=== PATIENT | male | born 1930 | race Caucasian/White ===

== ENCOUNTER 2017-12-26 18:38 | Inpatient (IN) | payer MEDICARE, BC ==
[2017-12-26] MEDS ORDERED: Adacel (T-DAP) 0.5 ML VIAL ONE (19:14)
[2017-12-26] MEDS ORDERED: Acetaminophen 500 MG TAB ONE ×2 (19:14→19:16)
[2017-12-26 19:27] LABS: #Basophils 0.1 thou/uL (0.0-0.2); #Eosinphils 0.2 thou/uL (0.0-0.7); #Lymphocytes 0.7 thou/uL (1.20-3.40); #Monocytes 0.6 thou/uL (0.11-0.59); #Neutrophils 6.5 thou/uL (1.40-6.50); %Basophils 1.4 % (0.0-1.0); %Eosinophils 2.8 % (0.0-10.0); %Lymphocytes 8.2 % (21.0-51.0); %Monocytes 7.3 % (0.0-10.0); %Neutrophils 80.4 % (42.0-75.0); Hemoglobin 12.4 g/dL (14.0-18.0); Mean Corpuscular HGB CONC 35.1 g/dL (32.0-36.0); Mean Corpuscular Hemoglobin 30.3 pg (27.0-31.0); Mean Corpuscular Volume 86.3 fl (80.0-94.0); Mean Platelet Volume 6.8 fL (7.4-10.4); Platelet Count 170 thou/uL (130-400); RBC Distribution Width 11.1 % (11.5-14.5); White Blood Cell (WBC) Count 8.1 thou/uL (4.8-10.8)
[2017-12-26 19:32] LABS: INR-International Normal Ratio 1.1; PTT 30.3 SEC (22.9-36.1); Prothrombin Time 14.1 SEC (12.0-14.7)
[2017-12-26 19:42] LABS: ALT (SGPT) 17 U/L (8-55); AST (SGOT) 22 U/L (5-34); Albumin 3.9 g/dL (3.4-4.8); Alkaline Phosphatase 38 U/L (40-150); Anion Gap 12 mmol/L (10-20); BUN (Urea Nitrogen) 21 mg/dL (8.4-25.7); Bilirubin, Total 0.4 mg/dL (0.2-1.2); CK (CPK) 108 U/L (30-200); Calc. Creatinine Clearance 0 mL/min (70-130); Calcium 9.2 mg/dL (7.8-10.44); Carbon Dioxide 25 mmol/L (23-31); Chloride 99 mmol/L (98-107); Estimated GFR-MDRD 78; Globulin 2.2 g/dL (2.4-3.5); Glucose 167 mg/dL (83-110); Potassium 3.8 mmol/L (3.5-5.1); Protein, Total 6.1 g/dL (5.8-8.1); Sodium 132 mmol/L (136-145)
[2017-12-26 19:43] LABS: Troponin I Less than 0.010 ng/mL (< 0.028)
--- NOTE | 2017-12-26 20:17 | CT ---
CT BRAIN NONCONTRAST: HISTORY: An 87-year-old male with syncope, resulting in fall and traumatic headache. FINDINGS: There is no midline shift or any other mass effect. There is no evidence of acute intracranial hemor rhage, large cortical infarct, obstructive hydrocephalus, or extraaxial fluid collection. The calvar ium is intact. There is diffuse parenchymal volume loss. There are low attenuation areas in the whi te matter. These are nonspecific, but in a patient of this age, they are probably chronic ischemic w nydia matter changes due to microvascular atherosclerosis. IMPRESSION: 1) No acute intracranial findings. 2) Involutional changes and chronic ischemic white matter changes. jn [] POS: [facility]
--- NOTE | 2017-12-26 20:30 | CT ---
CT MAXILLOFACIAL NONCONTRAST: DATE: 12/26/2017 TIME: 7:36 p.m. HISTORY: An 87-year-old male, status post acute traumatic injury to the face from a fall. FINDINGS: Mildly displaced nasal bone fractures, with angulation, and overlying mild soft tissue swelling, ther efore probably acute. All the paranasal sinuses and the bilateral tympanomastoid cavities are grossl y clear. No other fracture is identified. IMPRESSION: Acute, traumatic, minimally displaced nasal bone fractures. POS: [facility]
--- NOTE | 2017-12-26 20:31 | CT ---
CT CERVICAL SPINE NONCONTRAST: HISTORY: An 87-year-old male status post acute traumatic injury to the cervical spine from fall. FINDINGS: There are no jumped or perched facets. There is no evidence of acute fracture. The vertebral body h eights are maintained. There is no prevertebral soft tissue swelling. IMPRESSION: No evidence of acute fracture or acute traumatic subluxation. benny [] POS: [facility]
--- NOTE | 2017-12-26 21:16 | RAD ---
RADIOGRAPH CHEST 1 VIEW: HISTORY: An 87-year-old male status post syncope. FINDINGS: This study is overexposed, making it suboptimal. There is hyperinflation of the lungs, consistent wi th COPD. There is no evidence of air space density, pneumothorax, or pulmonary edema. The lateral c ostophrenic angles are sharp. There is no cardiomegaly. There is a multilead left subclavian AICD. IMPRESSION: 1) No acute pulmonary findings. 2) Emphysema. 3) Automatic implantable cardioverter/defibrillator. benny [] POS: [facility]
--- NOTE | 2017-12-26 21:21 | RAD ---
RADIOGRAPH RIGHT KNEE FOUR VIEWS: 12/26/2017 HISTORY: An 87-year-old male status post acute right knee injury from fall. FINDINGS: No acute fracture is identified. No dislocation. Small suprapatellar joint effusion. Mild edema in the Hoffa's fat pad. Moderate to severe joint space narrowing and adjacent sclerosis of the articul ar surfaces at the medial compartment. Chondrocalcinosis of the medial and lateral compartments. IMPRESSION: 1. Moderate osteoarthrosis of the medial compartment. 2. 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 3. Small joint effusion. 4. No fracture identified. POS: [facility]
[2017-12-26] MEDS ORDERED: HYDROcodone/Acetaminophen 5/325 mg Tablet PO PRN ×2 (21:22)
[2017-12-26] MEDS ORDERED: Ondansetron ODT 4 MG TAB SL PRN (21:22)
[2017-12-26] MEDS ORDERED: Acetaminophen 325 MG TAB PO PRN (21:22)
[2017-12-26] MEDS ORDERED: Ondansetron HCl/PF 4 MG/2 ML Vial IVP PRN (21:22)
[2017-12-26 22:01] VITALS: BMI 19.3
[2017-12-26] MEDS ORDERED: Carvedilol 3.125 MG TAB PO SCH (22:30)
[2017-12-27 01:48] LABS: Troponin I 0.016 ng/mL (< 0.028)
[2017-12-27 08:39] LABS: Bilirubin Negative (Negative); Blood, Urine Small (Negative); Clarity CLEAR (Clear); Glucose, Urine (Dipstick) Negative (Negative); Leukocyte Negative (Negative); Nitrite Negative (Negative); Protein, Urine (Dipstick) Negative (Neg-Trace); Specific Gravity, Urine 1.009 (1.002-1.036); Urobilinogen 0.2 mg/dL (0.2-1.0); pH, Urine 7.5 (5.0-9.0)
[2017-12-27 08:42] LABS: Hemoglobin 14.3 g/dL (14.0-18.0)
--- NOTE | 2017-12-27 08:45 | HP ---
CHIEF COMPLAINT: Fall. HISTORY OF PRESENT ILLNESS: This is an 87-year-old gentleman with a history of hypertension, sick sinus syndrome, status post pacemaker placement, dilated ischemic cardiomyopathy, history of aortic insufficiency, history of memory loss , who presents to the emergency department last night after a fall. The patient states that he has been in his usual state of health and has not been ill. He recently returned from a trip from [place] and yesterday was doing his usual walk, had already walks 1-2 miles and began to feel dizzy. He went to go sit down when he apparently fell. He hit his face on the ground as well as his right knee. He states that he was aware during the whole fall, he had no loss of consciousness. He reports there was someone who came by to help him up and gave him some water to drink. The dizziness resolved. He had no postictal state. No increased confusion. He denied chest pain, shortness of breath or palpitations. He presented to the emergency department last night had a normal workup in the ED with a normal CT spine, normal chest x-ray, normal brain CT, normal x-ray of knee. He did suffer a nasal fracture, minimally displaced. He states that he slept well last night and today is feeling back to his baseline with no further episodes of dizziness. He is followed by Dr. Simone Tello for Cardiology and he states that he last saw him about 2 months ago in his office and had a normal workup. No change in his medications. PAST MEDICAL HISTORY: Essential hypertension, sick sinus syndrome, status post pacemaker defibrillator placement in 2014, history of dilated cardiomyopathy. He is uncertain of his last echocardiogram, aortic insufficiency, history of pulmonary fibrosis, CHF, past episode of syncopal episode. MEDICATIONS: Zestril 2.5 mg daily, spironolactone 25 mg daily, carvedilol 3.125 mg b.i.d., Claritin once daily p.r.n., Centrum multivitamin, senna, aspirin 81 mg daily. ALLERGIES: None known. PAST SURGICAL HISTORY: A left fibular fracture in 2006, tonsillectomy in 2011, a defibrillator pacemaker placement in 2014, appendectomy, left leg vein repair , right eye cataract removal, a broken wrist in 2014. Basal cell carcinoma in 2014. Left hydrocele repair at 41, inguinal hernia repair in 2012. SOCIAL HISTORY: He is a retired protective services social worker. He is , has a daughter who lives at home and assist him. He is a nonsmoker, no alcohol. Regular caffeine usage. FAMILY HISTORY: Father with hypertension, heart disease, alcoholism. Mother with schizophrenia, CVA, daughter with depression. IMMUNIZATIONS: Up to date. A tetanus shot given in the ED. REVIEW OF SYSTEMS: As per the history of present illness. GENERAL: He denies any recent fevers, chills or recent illness. HEENT: Positive facial pain. Positive nasal fracture. No blurred vision, double vision. CARDIAC: Denies chest pain, shortness of breath or palpitations. PULMONARY: Denies cough or hemoptysis. GASTROINTESTINAL: Denies nausea, vomiting, abdominal pain, melena or hematochezia. GENITOURINARY: Denies dysuria or hematuria. NEUROLOGIC: Positive syncope. No seizures, no postictal state. No headache. MUSCULOSKELETAL: Right knee pain after a fall. PSYCHIATRIC: No recent episodes of depression or anxiety. PHYSICAL EXAMINATION: VITAL SIGNS: Temperature 98.2, pulse of 65, respirations 12, blood pressure last night 141/64, this morning 111/57, pulse ox is 94% on room air. GENERAL: He is awake and alert, in no acute distress. Speech is clear and fluent. HEENT: Face with ecchymosis. Positive redness, positive blood over nasal areas with abrasions. NECK: Supple, no JVD, adenopathy or bruits. HEART: Regular rate and rhythm without murmurs. LUNGS: Clear bilaterally. ABDOMEN: Soft. No hepatosplenomegaly. EXTREMITIES: Some redness over the right knee with tenderness to palpation, but full range of motion. NEUROLOGIC: Cranial nerves II-XII are grossly intact. Strength is 5/5 bilaterally. DTRs are normal bilaterally. He is able to stand without difficulty. He has negative Romberg sign. LABORATORY DATA: White blood cell count 8.1, hemoglobin and hematocrit 12.4 and 35.4, platelets of 170, normal differential. PT, PTT are normal. Sodium 132, potassium 3.8, chloride 99, CO2 of 25, BUN and creatinine at 21 and 0.92 with a GFR of 78. Serum glucose of 167. AST and ALT are normal. Cardiac enzymes are negative x3. Again, cervical spine CT was normal. Chest x-ray showed no active disease. Brain CT showed chronic ischemic changes, no acute abnormalities. Facial CT with a nondisplaced nasal fracture. Knee x-ray was normal. ASSESSMENT AND PLAN: This is an 87-year-old gentleman with a history of sick sinus syndrome and cardiomyopathy, now status post syncopal episode and nasal fracture. 1. Agree with ENT evaluation. Likely will not need surgical repair. 2. Syncope. Await echocardiogram and carotid Doppler. Continue telemetry monitoring to rule out arrhythmia. We will also interrogate his pacemaker. 3. History of cardiomyopathy. We will continue carvedilol and lisinopril. We will stop spironolactone at this time due to syncopal episode, possibly related to dehydration. 4. We will check UA C&S to rule out any other etiologies of the syncope. DISPOSITION: Hopefully home later this afternoon after workup is completed with close followup. LILIAN
[2017-12-27 08:47] LABS: Bacteria/HPF None Seen HPF (None Seen); Hyaline Casts/LPF 0-3 HYALINE CAST LPF (0-3 Hyaline); Squamous Epithelial None Seen HPF (0-3); WBC/HPF None Seen HPF (0-3)
[2017-12-27] MEDS ORDERED: SIMETHICONE 125 MG PO SCH (09:00)
[2017-12-27] MEDS ORDERED: Aspirin 325 MG TAB PO SCH (09:00)
[2017-12-27] MEDS ORDERED: Non-Formulary Item 1 EACH (Calcium Carb/Vitamin D3/Vit K1 [Calcium + D Soft Chewable Tabl PO SCH (09:00)
[2017-12-27] MEDS ORDERED: VITAMIN B COMPLEX PO SCH (09:00)
[2017-12-27] MEDS ORDERED: Non-Formulary Item 1 EACH (Loratadine [Claritin] 10 MG) PO SCH (09:00)
[2017-12-27] MEDS ORDERED: FOLIC ACID PO SCH (09:00)
[2017-12-27 09:06] LABS: Anion Gap 11 mmol/L (10-20); BUN (Urea Nitrogen) 13 mg/dL (8.4-25.7); Calc. Creatinine Clearance 64 mL/min (70-130); Calcium 9.5 mg/dL (7.8-10.44); Carbon Dioxide 24 mmol/L (23-31); Chloride 104 mmol/L (98-107); Estimated GFR-MDRD Greater than 90; Glucose 95 mg/dL (83-110); Potassium 3.9 mmol/L (3.5-5.1); Sodium 135 mmol/L (136-145)
[2017-12-27] MEDS: Lisinopril 2.5 MG TAB PO SCH (09:21)
[2017-12-27] MEDS: Simethicone Chewable 80 MG TAB PO SCH (09:22)
[2017-12-27] MEDS: Calcium Carbonate + Vit D 1 TAB PO SCH (09:22)
[2017-12-27] MEDS: Carvedilol 3.125 MG TAB PO SCH ×2 (09:23→21:22)
[2017-12-27] MEDS: Loratadine 10 MG TAB PO SCH (09:23)
[2017-12-27] MEDS: Stress 600 With Zinc 1 TAB PO SCH (09:23)
[2017-12-27] MEDS: Acetaminophen 325 MG TAB PO PRN (13:06)
--- NOTE | 2017-12-27 13:17 | ULT ---
BILATERAL CAROTID DUPLEX ULTRASOUND: HISTORY: Syncope. TECHNIQUE: Tello-scale, color-flow, and spectral Doppler imaging of the extracranial carotid artery systems is pe rformed bilaterally. FINDINGS: There is plaque formation on either side. The peak systolic velocity in the right ICA measures 74 cm per second with an end-diastolic velocity of 13 cm per second and a systolic ratio of 0.85. The peak systolic velocity in the left ICA measures 61 cm per second with an end-diastolic velocity o f 15 cm per second and a systolic ratio of 0.84. Flow in both vertebral arteries remains antegrade. IMPRESSION: No evidence of hemodynamically significant stenosis. POS: [facility]
[2017-12-27] MEDS: Senokot S 8.6-50 MG TAB PO SCH (21:22)
--- NOTE | 2017-12-27 22:58 | CON ---
DATE OF CONSULT: 12/27/17 HISTORY OF PRESENT ILLNESS: The patient is an 87-year-old gentleman who presents for evaluation after losing consciousness. The patient has a history of a nonischemic cardiomyopathy. He states several years ago, he was diagnosed with a cardiomyopathy, and had placement of automatic implantable cardiac defibrillator. He also underwent a cardiac catheterization and he was found to have apparently no significant coronary artery disease. This was done in [place] approximately three years ago. The patient has subsequently been followed by Dr. Tello. He has been on medical therapy. He was in usual state of health when at the mall, he had walked for several miles when he suddenly lost consciousness. He fell and hit his face. The patient denied having a loss of control of bladder or bowels. The patient denied having chest pain. PAST MEDICAL HISTORY: 1. Cardiomyopathy. 2. Hypertension. 3. Sick sinus syndrome. PAST SURGICAL HISTORY: Appendectomy, eye surgery, hydrocele repair, inguinal hernia repair and surgery on his fibula. SOCIAL HISTORY: Nonsmoker. FAMILY HISTORY: Positive family history of coronary artery disease. ALLERGIES: No known drug allergies. MEDICATIONS ON ADMISSION: Zestril 2.5 daily, spironolactone 25 daily, Coreg 3.125 b.i.d. REVIEW OF SYSTEMS: Ten-point system otherwise unremarkable. PHYSICAL EXAMINATION: GENERAL: This is a well-developed gentleman in no acute distress. VITAL SIGNS: Blood pressure was 132/63 supine, sitting was 141/64 and standing was 137/64. NECK: Showed no jugular distention. LUNGS: Clear to auscultation. HEART: Regular rate and rhythm, normal S1, S2, no murmurs. ABDOMEN: Nondistended. EXTREMITIES: Showed no edema. SKIN: Warm and dry. NEUROLOGIC: Nonfocal. VASCULAR: Radial pulses are 2+. LABORATORY DATA: Sodium 135, potassium 3.9, chloride 104, bicarbonate 24, BUN 13, creatinine is 0.74. Troponin was 0.016. His EKG revealed him to have electronic ventricular pacemaker. Interrogation of the AICD showed nonsustained ventricular tachycardia. IMPRESSION: 1. Syncope. 2. Ventricular tachycardia. 3. History of nonischemic cardiomyopathy. 4. History of AICD placement. 5. Hypertension. This gentleman presented with a syncopal episode and sustained a facial injury. He had his AICD interrogated. There was nonsustained ventricular tachycardia which does not appear to correlate with the timing of his fall. We will ask EP to evaluate. The patient is not orthostatic. We will recheck the patient's echocardiogram. We will follow this patient with you through his hospitalization. Further recommendation to follow. MTDD
[2017-12-28] MEDS: Stress 600 With Zinc 1 TAB PO SCH (07:53)
[2017-12-28] MEDS: Loratadine 10 MG TAB PO SCH (07:53)
[2017-12-28] MEDS: Lisinopril 2.5 MG TAB PO SCH (07:53)
[2017-12-28] MEDS: Carvedilol 3.125 MG TAB PO SCH ×2 (07:53→20:14)
[2017-12-28] MEDS: Calcium Carbonate + Vit D 1 TAB PO SCH (07:53)
[2017-12-28] MEDS: Simethicone Chewable 80 MG TAB PO SCH (07:54)
--- NOTE | 2017-12-28 08:27 | PRG ---
DATE OF SERVICE: 12/28/2017 SUBJECTIVE: The patient is feeling better. Denies chest pain, denies shortness of breath, denies pa lpitations. He admits to some lightheadedness at times, but no falls, no near syncope. He wants to go home. Appetite is good. He is tolerating walking in the hallway with his daughter. PHYSICAL EXAMINATION: VITAL SIGNS: Temperature 97.6, pulse of 65-72, respirations 12, blood pressure 116/56, pulse ox is 9 6% on room air. GENERAL: He is awake and alert, in no acute distress. Speech is clear. HEENT: Face with contusions and abrasions. Nose is visibly displaced. NECK: Supple. HEART: Regular rate and rhythm. LUNGS: Clear bilaterally. EXTREMITIES: With no edema. LABORATORY DATA: H and H 14.3 and 40.9. Sodium 135, potassium 3.9, chloride 104, CO2 of 24, BUN and creatinine 13 and 0.74 with a GFR greater than 90, glucose of 95, pacemaker interrogation did reveal at least 2 episodes of ventricular tachycardia that did not correlate with his symptoms and his fall . ASSESSMENT AND PLAN: This is an 87-year-old gentleman with known sick sinus syndrome, status post pa cemaker defibrillator placement, history of dilated cardiomyopathy, now with status post syncopal epi sode. 1. Appreciate cardiology evaluation. Awaiting EP evaluation for episodes of ventricular tachycardia . 2. Syncope. Awaiting echocardiogram report. Continue telemetry monitoring. 3. Nasal fracture. Await ENT opinion. 4. Cardiomyopathy, hypertension. We will continue carvedilol and lisinopril. I will continue to ke ep him off his spironolactone.
--- NOTE | 2017-12-28 11:03 | CON ---
DATE OF CONSULTATION: 12/28/2017 ELECTROPHYSIOLOGY CONSULTATION REPORT REFERRING PHYSICIAN: Dr. Bogdan Valencia I am seeing Mr. Blanton at our [facility] telemetry floor as an electrophysiology solutions sales consultant. His problems are: 1. Acute syncopal spell with significant facial trauma. A. ICD reveals no correlation of sustained ventricular tachycardia, but 150 beats per minute. 2. Nonsustained ventricular tachycardia on telemetry below the 150 beats per minute color zone, not prolonged enough to be treated ____ 19 beats. A. Ventricular fibrillation episodes nonsustained about 12 seconds on 12/10/2017 on ICD. 3. Since his biventricular ICD implantation in 06/[address] [employer] Quadra [employer]ura device wi th adequate battery voltage and lead per meters LV threshold 2.25 at 0.8 milliseconds. 4. Chronic systolic congestive heart failure with nonischemic cardiomyopathy. 5. History of sick sinus syndrome. 6. History of hypertension. ALLERGIES: None noted. MEDICATIONS AT HOME: Zestril, spironolactone and Coreg; Zestril 2.5 mg daily, spironolactone 25 mg, Coreg 3.125 mg twice a day. SUBJECTIVE: Mr. Blanton is here after a varun syncope while he was doing his walking exercise in the mall. He completely passed out suddenly after a slight prodrome of dizziness. He denies chest pains or palpitations prior to that. He does not recall any other signs of infection or abnormal distress although he has been busy last week traveling to [place] and walking around. He has been consum ing ample amount of fluids. He has no other episodes of palpitations. Does not pass out otherwise. He has no fever, chills, or cough. No stroke-like symptoms, no neurological deficits. Denies PND, orthopnea, lower extremity edema, fluid overload. REVIEW OF SYSTEMS: The rest of the 12 point system otherwise unremarkable. PAST MEDICAL HISTORY: As above. PAST SURGICAL HISTORY: Significant for fibular surgery, appendectomy, eye surgery, hydrocele repair, inguinal hernia repair. SOCIAL HISTORY: The patient denies smoking, ETOH or drug use. FAMILY HISTORY: Significant for coronary artery disease. OBJECTIVE: VITAL SIGNS: Blood pressure is116/56, pulse 65, respirations 18, temperature 97.8 degrees Fahrenheit . The orthostatic blood pressures were checked yesterday, standing blood pressure is 137/64, supine blood pressure 133/63. GENERAL: He is an alert and oriented man in no apparent distress. There is nasal bone deviation as well as obvious nasal area facial trauma is noted with bruises. NECK: Supple without jugular venous distention. CHEST: Coarse without crackles. CARDIAC: Left precordial ICD insertion site is well healed. ABDOMEN: Benign. Bowel sounds positive. EXTREMITIES: Lower extremities without edema, clubbing or cyanosis. Pulses are adequate. NEUROLOGIC: The patient is nonfocal. MUSCULOSKELETAL: No joint swelling or deformities. SKIN: Without rash. DATABASE: The EKG is reviewed revealing sinus rhythm with ventricular pacing with narrow down QRS. Interrogation of his ICD reveals a [employer] Quad[employer]ura biventricular ICD with implant date 07/07/2015. All lead parameters are adequate. The LV threshold is slightly high at 2.25 volts at 0 .8 milliseconds, his DDDR 61 20 beats per minute, VT zone is 150 beats per minute per monitor, VT 2 zone and VS1 is 181 beats per minute with therapies and 214 beats per minute for therapies as well. No sustained ventricular tachycardia episodes are noted. Atrial fibrillation burden is 0 and no mode switches are seen. a nonsustained VF zone arrhythmia was documented on 12/10/2017 at 194 beats per minute. Total duration of 12 seconds. LABORATORY DATA: White count is 8.1, hemoglobin 12.4, platelet count is 170. INR 1.1. Sodium 135, potassium 3.9, BUN is 13, creatinine 0.74. Troponins are negative x3. The chest x-ray shows no acute pulmonary findings, some signs of emphysema. The Brain CT shows no acute intracranial findings, minor involuntary changes. Carotid Doppler from 0 12/27/2017 shows no evidence of hemodynamic significant stenosis. ASSESSMENT AND PLAN: As above. There is a pleasant 87-year-old man with history of congestive heart failure and nonischemic cardiomyopathy who has an adequate functioning biventricular ICD in place. He presented with acute syncopal spell with minimal prodrome. His ICD revealed no correlating sustai rogerio ventricular arrhythmias at least above 150 beats per minute, his monitor zone is programmed to. On the other hand, he does have a telemetry strip in our facility of ventricular tachycardia, rhythm about 19 beats which seems to be cutting below the 150 beats per minute range. So far we have no goo d explanation for his syncopal spell. He does not seem to be sick and dehydrated and his blood press ure is stable. One of the possibilities that he has a below detection limit ventricular tachycardia. I think it wou ld be reasonable to consider evaluating his inducibility for slow ventricular tachycardia and attempt to program his ICD accordingly. I will set him up for a noninvasive program stimulation tomorrow mo rning. We will keep him n.p.o. I explained the procedure to him. Risks and benefits detailed. We will proceed.
[2017-12-28] MEDS: Senokot S 8.6-50 MG TAB PO SCH (20:14)
[2017-12-28] MEDS: Acetaminophen 325 MG TAB PO PRN (23:08)
[2017-12-29] MEDS ORDERED: Propofol 500 MG/50 ML VIAL ONE (08:14)
[2017-12-29] MEDS ORDERED: Ondansetron HCl/PF 4 MG/2 ML Vial IVP PRN (08:55)
[2017-12-29] MEDS ORDERED: Promethazine HCl 25 MG/ML VIAL IM PRN (08:55)
[2017-12-29] MEDS ORDERED: Promethazine HCl 25 MG/ML VIAL SLOW IVP PRN (08:55)
[2017-12-29] MEDS: Lisinopril 2.5 MG TAB PO SCH (12:19)
[2017-12-29] MEDS ORDERED: Calcium Carbonate + Vit D 1 TAB PO SCH (12:30)
[2017-12-29] MEDS ORDERED: Simethicone Chewable 80 MG TAB PO SCH (12:30)
[2017-12-29] MEDS ORDERED: Stress 600 With Zinc 1 TAB PO SCH (12:30)
[2017-12-29] MEDS ORDERED: Carvedilol 3.125 MG TAB PO SCH (12:30)
[2017-12-29] MEDS ORDERED: Loratadine 10 MG TAB PO SCH (12:30)
[2017-12-29] MEDS: Simethicone Chewable 80 MG TAB PO SCH (12:47)
[2017-12-29] MEDS: Loratadine 10 MG TAB PO SCH (12:47)
[2017-12-29] MEDS: Stress 600 With Zinc 1 TAB PO SCH (12:47)
[2017-12-29] MEDS: Carvedilol 3.125 MG TAB PO SCH ×2 (12:47→20:27)
[2017-12-29] MEDS: Calcium Carbonate + Vit D 1 TAB PO SCH (12:47)
[2017-12-29] MEDS ORDERED: PROPOFOL 200 MG/20 ML VIAL ONE (14:17)
[2017-12-29] MEDS: Senokot S 8.6-50 MG TAB PO SCH (15:42)
[2017-12-30 08:16] VITALS: BP 127/60; TEMP 98.6
[2017-12-30] MEDS: Calcium Carbonate + Vit D 1 TAB PO SCH (08:17)
[2017-12-30] MEDS: Loratadine 10 MG TAB PO SCH (08:17)
[2017-12-30] MEDS: Carvedilol 3.125 MG TAB PO SCH (08:17)
[2017-12-30] MEDS: Simethicone Chewable 80 MG TAB PO SCH (08:18)
--- NOTE | 2017-12-30 08:25 | DIS ---
DATE OF ADMISSION: 12/27/2017 DATE OF DISCHARGE: 12/30/2017 ADMISSION DIAGNOSIS: Syncopal episode, fall, nasal fracture. DISCHARGE DIAGNOSES: Sick sinus syndrome, nasal fracture, syncope, cardiomyopathy. CONSULTATIONS: Bogdan Valencia M.D. for Cardiology, Dr. Mitchell for Electrophysiology, Dr. Ayala for EN T. HOSPITAL COURSE: This is an 87-year-old gentleman with a history of sick sinus syndrome, status post placement of a pacemaker defibrillator. He had a syncopal episode while walking at the mall. He badillo ffered a nasal fracture. He was admitted to telemetry due to the syncopal episode when his pacemaker was interrogated. It noted several episodes of ventricular tachycardia. The patient was mostly asy mptomatic during those episodes. Dr. Valencia saw the patient in evaluation and recommended electrop hysiology evaluation. Dr. Mitchell saw the patient due to the syncopal episode with facial trauma, episo paulina of sustained ventricular tachycardia up to 150 beats per minute, as well as a nonsustained episod e of ventricular fibrillation on 12/10/2017. He recommended electrophysiology evaluation and to prog lulú. his ICD. He underwent a cardiac catheterization and procedure and tolerated it well. His devic e was reprogrammed without any complications. The patient was ambulating without difficulty and stab le for discharge on the day of discharge. DISCHARGE PHYSICAL EXAMINATION: VITAL SIGNS: Temperature 97.6, pulse of 75, respirations 16, blood pressure 121/64, pulse ox is 97% on room air. GENERAL: He is awake and alert, in no acute distress. HEENT: Face with ecchymotic areas. No further bleeding from his nose. Tenderness over his nasal br idge. HEART: Regular rate and rhythm. LUNGS: Clear. EXTREMITIES: With no edema. LABORATORY DATA: Reviewed. DISCHARGE MEDICATIONS: Tylenol, aspirin 81 mg daily, calcium, carvedilol 3.125 mg b.i.d., multivitam in, lisinopril was discontinued. FOLLOWUP INSTRUCTIONS: The patient to follow up with Dr. Mitchell as an outpatient and Cardiology in 1-2 weeks, in my office in 1-2 weeks.
--- NOTE | 2017-12-30 09:03 | OP ---
DATE OF PROCEDURE: 12/29/2017 NONINVASIVE PROGRAM STIMULATION REPORT REFERRING PHYSICIAN: Dr. Valencia. I am seeing Mr. Blanton for an episode of syncopal spell. His ICD device interrogation revealed no correlating ventricular arrhythmia down to the level of 150. There is suspicion of sub-detection zone ventricular tachycardia episodes, He is here for a noninvasive program stimulation and reprogramming of his ICD. DESCRIPTION OF PROCEDURE: The patient received light sedation by Anesthesia specialist, propofol. After adequate level of sedation achieved, the patient was prepped in the EP Lab. The external defibrillator pads were attached and verified. With a [employer] ict programmer for interrogation of device was performed revealing adequate device function longevity to about 3.3 years, mild LV 0.8 milliseconds. Following that, a program stimulation was performed through the ventricular lead initially with 400/300/300 milliseconds, cycle length was decremented to the refractory at 400/240/180 milliseconds. Extrastimuli was added again at 480/280/230/230 and the further decrement of this sequence was performed gradual to the refractory period of each extrastimuli. At 400/240/180/180 milliseconds, sequence induced rapid ventricular fibrillation was promptly detected and shock terminated by the device at 25 joule shock. Burst ventricular pacing was also attempted, but no sustained slow VT was induced. In the end of the case, the device was again retested and reprogrammed. Ventricular tachycardia zone below 141 beats per minute was programmed. ATP therapies are programmed, but no shock for this lower zone. The rate cutoff for the fast VT zone was lowered to 171 beats per minute. CONCLUSION: 1. Inducible ventricular fibrillation with aggressive extrastimuli testing with 3 ventricular access stimuli, which was successfully detected and shock terminated. 2. No sustained monomorphic VT was induced. 3. ICD was reprogrammed to adding a lower treatment zone down to 140 beats per minute, hence the suspicion of a slow ventricular tachycardia, although at this point it was not clearly inducible. 4. Reprogramming device as above. PLAN: Routine monitoring, consider maximize beta laury therapy and monitor blood pressure as well. MTDD
[2017-12-30] MEDS: Stress 600 With Zinc 1 TAB PO SCH (09:25)
== END 2017-12-30 11:31 | disposition home or self-care (01) | DRG 309 ==
LOC: SCSER 18:38 → 2SW 20:10 → OBSVTOIN 12-28 11:36 → 2NO 12-29 09:18
PROVIDERS: ADMIT Family Medicine; ATTEND Family Medicine
PROC: 4B02XTZ Measurement of Cardiac Defibrillator, External Approach (ICD-10-PCS; principal; 2017-12-29)
DX: I47.2 Ventricular tachycardia (principal); I50.22 Chronic systolic (congestive) heart failure; I42.0 Dilated cardiomyopathy; S02.2XXA Fracture of nasal bones, initial encounter for closed fracture; R55 Syncope and collapse; I11.0 Hypertensive heart disease with heart failure; I25.5 Ischemic cardiomyopathy; Z95.810 Presence of automatic (implantable) cardiac defibrillator; Z79.82 Long term (current) use of aspirin; Z79.899 Other long term (current) drug therapy; W18.30XA Fall on same level, unspecified, initial encounter; Y93.01 Activity, walking, marching and hiking; Y92.59 Other trade areas as the place of occurrence of the external cause
CPT/HCPCS: 36415; 70450; 70486; 71045; 72125; 80048; 80053; 81003; 81015; 82550; 82553; 84484; 85014; 85018; 85025; 85610; 85730; 87086; 90471; 90715; 93005; 93306; 93609; 93621; 93880; A4216; G8978-GP-CJ; G8979-GP-CJ; G8980-GP-CJ; J2704

== ENCOUNTER 2018-05-10 18:05 | Inpatient (IN) | payer MEDICARE, BC ==
[2018-05-10] MEDS ORDERED: Acetaminophen 325 MG TAB ONE (18:32)
[2018-05-10] MEDS ORDERED: cefTRIAXone\\ROCEPHIN 2 GM VIAL ONE (18:55)
[2018-05-10] MEDS ORDERED: Sodium Chloride 0.9% 100 ML ONE (18:55)
[2018-05-10 19:06] LABS: #Basophils 0.1 thou/uL (0.0-0.2); #Eosinphils 0.1 thou/uL (0.0-0.7); #Lymphocytes 0.5 thou/uL (1.20-3.40); #Monocytes 0.7 thou/uL (0.11-0.59); #Neutrophils 7.5 thou/uL (1.40-6.50); %Eosinophils 1.2 % (0.0-10.0); %Lymphocytes 5.8 % (21.0-51.0); %Monocytes 7.7 % (0.0-10.0); %Neutrophils 84.2 % (42.0-75.0); Hemoglobin 13.6 g/dL (14.0-18.0); Mean Corpuscular HGB CONC 33.8 g/dL (32.0-36.0); Mean Corpuscular Hemoglobin 28.5 pg (27.0-31.0); Mean Corpuscular Volume 84.2 fL (78.0-98.0); Mean Platelet Volume 6.6 fL (7.4-10.4); Platelet Count 266 thou/uL (130-400); RBC Distribution Width 10.9 % (11.5-14.5); Red Blood Cell (RBC) Count 4.78 mill/uL (4.70-6.10)
[2018-05-10 19:23] LABS: ALT (SGPT) 23 U/L (8-55); AST (SGOT) 24 U/L (5-34); Alkaline Phosphatase 48 U/L (40-150); Anion Gap 13 mmol/L (10-20); BUN (Urea Nitrogen) 13 mg/dL (8.4-25.7); Bilirubin, Total 0.7 mg/dL (0.2-1.2); Calc. Creatinine Clearance 0 mL/min (70-130); Calcium 9.5 mg/dL (7.8-10.44); Carbon Dioxide 24 mmol/L (23-31); Chloride 97 mmol/L (98-107); Estimated GFR-MDRD 85; Globulin 2.8 g/dL (2.4-3.5); Glucose 109 mg/dL (83-110); Protein, Total 6.8 g/dL (5.8-8.1); Sodium 130 mmol/L (136-145)
[2018-05-10 19:42] LABS: Bilirubin Negative (Negative); Blood, Urine Trace (Negative); Glucose, Urine (Dipstick) Negative (Negative); Leukocyte Negative (Negative); Nitrite Negative (Negative); Protein, Urine (Dipstick) Negative (Neg-Trace); Specific Gravity, Urine 1.015 (1.005-1.030); Urobilinogen 0.2 mg/dL (0.2-1.0)
[2018-05-10 19:43] LABS: Clarity Hazy (Clear)
[2018-05-10 19:51] LABS: Bacteria/HPF 1+ HPF (None Seen); Crystals/HPF 1+ AMORPH PHOS HPF (Negative); RBC/HPF 0-3 HPF (0-3); Squamous Epithelial 0-3 HPF (0-3); WBC/HPF None Seen HPF (0-3)
--- NOTE | 2018-05-10 19:52 | CT ---
NONCONTRAST HEAD CT: 05/10/18 COMPARISON: 12/26/17. HISTORY: Altered mental status. Headache. Recent fall. Large hemorrhagic contusion centered in the inferomedial right frontal lobe. The hemorrhagic componen t measures 5.0 x 1.8 cm. There is adjacent edema involving the right frontal lobe with sulcal effacem ent. There is effacement of the central horn of the right lateral ventricle. There is anterior right to left subfalcine herniation of approximately 3 mm. Additional areas of parenchymal hemorrhage are n ot appreciated. Hypoattenuation of the white matter due to chronic small vessel ischemic change. No evidence of hydro cephalus. Stable hypoattenuation in the left frontal periventricular and deep white matter likely due to remote insult. The calvarium is intact. Bilateral maxillary sinus air fluid levels. Mild mucosal thickening of the e thmoid air cells. Adequate mastoid air cell aeration. IMPRESSION: Right parenchymal hemorrhage/hematoma involving the frontal lobe. There is associated right to left s ubfalcine herniation of approximately 3 mm. Results of the study discussed with Dr. Berry, 05/10/18 at 1717 p.m. Code CR POS: [facility]
--- NOTE | 2018-05-10 19:54 | RAD ---
CHEST TWO VIEWS: 05/10/18 HISTORY: Cough. Fever. COMPARISON: 12/26/17. FINDINGS: Stable left sided defibrillator. Normal cardiac silhouette. Pulmonary vessels and hilum are normal. C ostophrenic angles are clear. Hyperinflation with chronic changes. No pneumothorax or osseous abnorma lities. IMPRESSION: Hyperinflation. No acute cardiopulmonary process. POS: [facility]
[2018-05-10] MEDS ORDERED: hydrALAZINE 20 MG/ML VIAL SLOW IVP PRN (20:12)
[2018-05-10] MEDS ORDERED: [UNRECOGNIZED DRUG - REMARK] PO PRN (20:31)
[2018-05-10] MEDS ORDERED: Sodium Chloride 0.9% 1,000 ML IV SCH (22:30)
[2018-05-10] MEDS: Cefepime 2 GM in Sodium Chloride 0.9% 100 ML IVPB SCH (22:55)
[2018-05-10] MEDS ORDERED: Carvedilol 3.125 MG TAB PO SCH (23:00)
--- NOTE | 2018-05-11 02:01 | CON ---
DATE OF CONSULTATION: 05/10/2018 Lennox Grant PA-C dictating for Yfn Mathews MD A 50-minute initial patient evaluation in which greater than 50% of the exam was spent counseling acc ording to patient's care. The remainder of the exam was spent in review of patient's medical records and review of imaging studies. CHIEF COMPLAINT: Altered mental status, confusion with right frontal intracerebral hemorrhage. HISTORY OF PRESENT ILLNESS: Mr. Blanton is a pleasant 88-year-old male who presents to [facility] Room for the above complaints. Apparently, the patient has only been living with his daughter for only a few weeks when he noticed that he was confused and having slurred speech. Head CT was ob tained showing a large right frontal intraparenchymal hemorrhage with some roughly 5 mm of midline sh ift. Patient was on 81 mg aspirin for cardiac prophylaxis but does have a history of a pacemaker rem otely. Presenting systolic blood pressure was 128. He currently has good blood pressure control. H e was also noted to have temperature of greater than 102, perhaps component of UTI. Patient provides a small amount of history, but ER staff and daughter provided the rest. The daughter does note a fa ll roughly 2 weeks ago when he was out of town for a week and the patient was left alone. PHYSICAL EXAMINATION: The patient is awake, alert, and appropriate. He does have significant slurre d speech. He is confused but is able to provide a small amount of history. Follows commands equally in all 4 extremities. He has no horizontal nystagmus on exam. Pupils are equal, round, and reactiv e bilaterally. He has no pronator drift. He is oriented to person and place, but not to time and he knows that this is 2018. IMPRESSION AND DIAGNOSES: 1. Status post remote fall with a right intraparenchymal hemorrhage. 2. Aspirin 81 mg for cardiac prophylaxis with remote history of pacemaker. PLAN: I have discussed the patient's case and imaging with Dr. Mathews. At this time, patient will b e admitted to the hospital for observation. I would like him to have q.1 hour neuro checks and be ad mitted to the critical care unit. We will plan to repeat a head CT tomorrow at 6:00 a.m. sooner megan romero symptoms dictate. I would like the patient's systolic blood pressure to remain less than 160. We will elevate his head of bed at 30. I have asked that we hold his aspirin and all other blood thinn ers. He will be n.p.o. Please call with any changes in patient's neurologic status. Otherwise, he is stable at this time and no need for neurosurgical intervention.
--- NOTE | 2018-05-11 04:20 | HP ---
DATE OF ADMISSION: 05/10/2018 at 10:22 p.m. HISTORY OF PRESENT ILLNESS: This is an 88-year-old white male with a history of a dilated cardiomyop athy, sick sinus syndrome who presents status post fall and altered mental status. The patient lives with his daughter and has been doing well. He does have cardiac issues followed by Dr. Simone Tello at [facility]. He was doing well until last week on Tuesday. On 05/02/2018, he was in the shower and fell and hit his left side of his head. His daughter was out of town during the week. However, the daughter called him daily and he was doing fine, he did not feel like he needed to go to the [facility]. He did have a bruise and sore on left side of his head. There was no nausea, vomiting, contu lynda. The daughter returned home this past Tuesday and the patient was doing well throughout the week even drove to [facility] to buy groceries. Problems did not develop until this morning, the daughter went off to work and did not notice anything unusual. The patient did see 10 days ago for a bro nchitis and took a 10-day supply of Augmentin. However, he has continued to cough despite the antibi otics. However, the daughter did notice this morning that there was oatmeal on the stove and stove w as off, but the oatmeal was not eaten. Normally, the patient ate oatmeal every morning. The rosa maria mcdonnell went off to work and returned at 5:15 this evening and found the patient was in bed. He thought it was evening time and all the lights were out in the house. He was somewhat confused and the rosa maria mcdonnell noted that he had a temperature of 100.3. He was immediately brought to the emergency room where vinny martins was found to have a temperature of 102.[address] of his head was done which revealed a right front al lobe cerebral hemorrhage. The patient is awake, alert, conversing at this time. The patient has been walking without difficulty. He has had no nausea, vomiting or slurred speech. MEDICATIONS: Include variety of vitamins. The only prescription medication is Coreg 3.125 b.i.d. Vinny martins does take aspirin 81 daily. ALLERGIES: None. PAST MEDICAL HISTORY: Dilated ischemic cardiomyopathy, aortic insufficiency, allergies, pulmonary fi brosis, history of congestive heart failure. PAST SURGICAL HISTORY: Include pacemaker/defibrillator placement in 2015, tonsillectomy, appendectom y, hydrocele repair, wrist fracture, inguinal hernia repair, skin cancer. FAMILY HISTORY: Positive for alcoholism, hypertension, heart disease, and mental illness. SOCIAL HISTORY: He is a nonsmoker, does not drink. He lives with his daughter. He is a retired [employer] worker and he is . REVIEW OF SYSTEMS: As above. PHYSICAL EXAMINATION: VITAL SIGNS: Temperature 101.3, pulse 87, respirations 18, blood pressure 139/60. GENERAL: The patient is in no acute distress at this time. He does have a tender left frontal head tenderness, resolving bruise, no hematoma palpable. Pupils are equal, reactive. Extraocular movemen ts are intact. TM, nose, throat is clear otherwise. NECK: Supple. HEART: Regular rate. LUNGS: Clear. ABDOMEN: Soft, nontender. EXTREMITIES: No edema present. NEUROLOGIC: Normal finger to nose, normal dysdiadochokinesis. Motor and sensory appears to be intac t bilaterally. Reflexes equal. Cranial nerves II-XII appear to be intact also. ASSESSMENT: 1. Altered mental status with the right frontal lobe hemorrhagic contusion involving approximately 5 cm area. 2. Dehydration. 3. Urosepsis. 4. Bronchitis. 5. Dilated ischemic cardiomyopathy. 6. Aortic insufficiency, history of congestive heart failure, sick sinus syndrome. 7. Status post pacemaker placement. 8. Hypertension. PLAN: 1. ICU admission. 2. Frequent neuro checks. 3. Repeat CT scan in the a.m. 4. Hydrate with normal saline at 50 mL per hour. 5. IV cefepime for urosepsis/bronchitis. 6. CBC, comprehensive in the a.m. 7. Continue Coreg 3.125 b.i.d. 8. Hold aspirin at this time.
[2018-05-11 04:48] LABS: #Eosinphils 0.1 thou/uL (0.0-0.7); #Lymphocytes 0.9 thou/uL (1.20-3.40); #Neutrophils 6.2 thou/uL (1.40-6.50); %Basophils 0.4 % (0.0-1.0); %Eosinophils 1.2 % (0.0-10.0); %Lymphocytes 10.8 % (21.0-51.0); %Neutrophils 75.7 % (42.0-75.0); Hemoglobin 13.1 g/dL (14.0-18.0); Mean Corpuscular HGB CONC 33.9 g/dL (32.0-36.0); Mean Corpuscular Hemoglobin 30.2 pg (27.0-31.0); Mean Corpuscular Volume 89.1 fL (78.0-98.0); Mean Platelet Volume 6.6 fL (7.4-10.4); Platelet Count 316 thou/uL (130-400); RBC Distribution Width 11.3 % (11.5-14.5); Red Blood Cell (RBC) Count 4.33 mill/uL (4.70-6.10); White Blood Cell (WBC) Count 8.2 thou/uL (4.8-10.8)
[2018-05-11 05:12] LABS: ALT (SGPT) 19 U/L (8-55); AST (SGOT) 23 U/L (5-34); Albumin 3.5 g/dL (3.4-4.8); Alkaline Phosphatase 44 U/L (40-150); Anion Gap 13 mmol/L (10-20); BUN (Urea Nitrogen) 13 mg/dL (8.4-25.7); Bilirubin, Total 0.5 mg/dL (0.2-1.2); Calc. Creatinine Clearance 57 mL/min (70-130); Calcium 8.6 mg/dL (7.8-10.44); Carbon Dioxide 21 mmol/L (23-31); Chloride 99 mmol/L (98-107); Estimated GFR-MDRD Greater than 90; Globulin 2.7 g/dL (2.4-3.5); Glucose 91 mg/dL (83-110); Potassium 3.7 mmol/L (3.5-5.1); Protein, Total 6.2 g/dL (5.8-8.1); Sodium 129 mmol/L (136-145)
[2018-05-11] MEDS: Cefepime 2 GM in Sodium Chloride 0.9% 100 ML IVPB SCH (05:41)
--- NOTE | 2018-05-11 08:16 | PRG ---
DATE OF SERVICE: 05/11/2018 This is a 30-minute initial hospital visit note, in which 30 minutes were spent in review of the imag ing record, evaluation, examination of patient, and formulation of a plan. Greater than 50% of the t triston was spent in counseling on Perico Blanton, 1930. I reviewed the notes of my colleague, Shawn Grant PA-C, and I agree with its content. Mr. Blanton is a very pleasant 88-year-old gentleman with a fall 2 weeks ago. He sustained the right paramedian frontal hemorrhage that is minimally enl arged this morning. Otherwise, he has been neurologically at his baseline, essentially intact. We w ill watch him another day in the ICU. Should he be stable, I will plan to sign off and arrange for sahil vega tomorrow, as an outpatient. DIAGNOSIS: Right intracerebral hemorrhage, post traumatic.
--- NOTE | 2018-05-11 08:30 | CT ---
PRELIMINARY REPORT/[facility]/EMERGENTY AFTER-HOURS PROCEDURE CT Head Without Intravenous Contrast EXAM DATE/TIME: 05/11/2018 3:03 AM CLINICAL HISTORY: 88 years old, male; Condition or disease; Other: Right frontal ich; Patient HX: Follow up right front al Ich TECHNIQUE: Axial computed tomography images of the head/brain without intravenous contrast. COMPARISON: No relevant prior studies available. FINDINGS: Brain: Apparent known right frontal intraparenchymal hematoma, with maximum AP and transverse dimensi ons of 40 x 30 mm. Moderate surrounding edema. Mild to moderate focal mass effect, with effacement of the frontal horn of right lateral ventricle. E ventual comparison with any available prior exams will be helpful. No other definite intracranial hem orrhage. There is decreased attenuation in the periventricular white matter, likely from microvascular disease . There is a small old infarct in the left frontal periventricular white matter. No definite acute in farct by CT. Midline shift: No significant midline shift. Ventricles: Ventricle size is otherwise unremarkable in appearance age. Bones/joints: No definite acute skull fracture. Sinuses: Mild mucosal thickening/fluid in the maxillary and ethmoid sinuses Included paranasal sinuse s are essentially clear. Mastoid air cells: No significant acute finding. IMPRESSION: 1. Apparent known right frontal intraparenchymal hematoma, details above. 2. Moderate surrounding edema. 3. Mild to moderate focal mass effect, with effacement f the frontal horn of right lateral ventricle. 4. No significant midline shift. 5. No other definite intracranial hemorrhage. 6. 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 7. Paranasal sinus findings as discussed above. 8. Eventual comparison with any available prior exams will be helpful. Thank you for allowing us to participate in the care of your patient. Dictated and Authenticated by: Levy Durbin MD 05/11/2018 3:58 AM Central Time ([place] & [place]) FINAL REPORT CT BRAIN: HISTORY: Patient with a previous history of intracranial hemorrhage. FINDINGS: Brain is obtained on 05/11/2018. Comparison is made to previous exam from 05/10/2018. Final report. Preliminary exam was performed by [facility]. CT images brain again demonstrates area of intraparenchymal hemorrhage in the right frontal lobe. Th ere is some developing resolution of some of the blood which has slightly decreased in density compar ed to the previous exam. Areas of varying degrees of blood products seen within the brain parenchyma . Area of intraparenchymal hemorrhage is not significantly changed since the previous day's CT. The re does appear to be some surrounding brain parenchymal edema. IMPRESSION: Right frontal lobe intraparenchymal hemorrhage. I concur with the dictation from [facility]. POS: [facility]
[2018-05-11] MEDS: Carvedilol 3.125 MG TAB PO SCH ×2 (09:04→20:49)
--- NOTE | 2018-05-11 12:02 | CON ---
DATE OF CONSULTATION: 05/11/2018 REASON FOR CONSULTATION: ICU management. HISTORY OF PRESENT ILLNESS: The patient is an 88-year-old male who was hospitalized yesterday with m ental status changes. He has a small hemorrhage in the right frontal area of his brain. He is actua lly awake, alert, does not have any neurologic deficits that I can detect on initial exam today. He has been seen by Neurosurgery and he is felt to need continue neurologic observation for the next 24 hours. PAST MEDICAL HISTORY: 1. Ischemic cardiomyopathy. 2. Aortic insufficiency. 3. Pulmonary fibrosis. 4. Congestive heart failure. PAST SURGICAL HISTORY: 1. Defibrillator placement, 2. Tonsillectomy. 3. Appendectomy. 4. Hydrocele repair. 5. Inguinal hernia repair. 6. Wrist fracture surgery. 7. Skin cancer removal. FAMILY MEDICAL HISTORY: Remarkable for alcoholism, hypertension, heart disease. SOCIAL HISTORY: Nonsmoker, does not consume alcohol. REVIEW OF SYSTEMS: Twelve point review of systems otherwise negative. PHYSICAL EXAMINATION: VITAL SIGNS: Temperature 98.1, pulse 75, blood pressure 138/66, O2 sat 100%. GENERAL: He is awake, alert, and in no distress. HEENT: Pupils react. Sclerae icteric. Oropharynx clear. NECK: No adenopathy or JVD. LUNGS: Clear without wheezing or rhonchi. CARDIOVASCULAR: S1, S2 regular. ABDOMEN: Soft, nontender. EXTREMITIES: No clubbing, cyanosis, or edema. LABORATORY DATA: White blood cell count 8.2, hematocrit 38.6, platelet count 316. Sodium 129, potas sium 3.7, chloride 99, CO2 21, BUN 13, creatinine 0.7, glucose 91. ASSESSMENT: Right frontal brain hemorrhage. PLAN: 1. Continue observation with neuro checks. 2. Add gastrointestinal prophylaxis with Protonix and deep venous thrombosis prophylaxis with sequen tial compression devices. Otherwise, seems to be doing well.
--- NOTE | 2018-05-11 12:49 | PRG ---
DATE OF SERVICE: 05/11/2018 SUBJECTIVE: The patient is feeling better. He complains of some headache, but no weakness, no blurr ed vision. Per neurosurgery, he is doing much better and does not have any neurologic deficits. The patient denies chest pain, shortness of breath or palpitations. Appetite is good. Denies nausea or vomiting. OBJECTIVE: VITAL SIGNS: Temperature 98.1, pulse of 75, respirations 19-25, blood pressure 138/66, pulse ox 100% on room air. GENERAL: He is awake and alert, in no acute distress. Speech is clear. HEENT: Mucosa is moist. Pupils equally round and reactive to light and accommodation. Head with so me tenderness on the right side. NECK: Supple. HEART: Regular rate and rhythm. LUNGS: Clear. ABDOMEN: Soft. EXTREMITIES: No clubbing, cyanosis or edema. 2+ peripheral pulses bilaterally. DISCHARGE LABORATORY DATA: White blood cell count 8.2 thousand, hemoglobin and hematocrit 13.1 and 3 8.6, platelets of 316. Sodium 129, potassium 3.7, chloride 99, CO2 of 21, BUN and creatinine 13 and 0.75, serum glucose of 91. LABORATORY DATA: Liver enzymes are normal. Head CT from this morning without contrast was compared to prior with a right frontal intraparenchymal hematoma, moderate surrounding edema. Mild to moderat e focal mass effect, no midline shift. 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 ASSESSMENT AND PLAN: This is an 88-year-old gentleman with a history of ischemic cardiomyopathy, pul monary fibrosis and congestive heart failure, admitted after a fall at home and found to have a right frontal brain hemorrhage. 1. Right intracerebral hemorrhage, posttraumatic, stable. I will continue to monitor per Neurosurge ry. 2. Urinary tract infection. Continue antibiotics probably the source of his weakness causing the fa ll. 3. Hyponatremia. He is asymptomatic. We will continue to follow, place on a fluid restriction for now and monitor. Recheck labs in the morning.
--- NOTE | 2018-05-11 13:15 | PQF ---
CLINICAL DOCUMENTATION IMPROVEMENT CLARIFICATION FORM: ICD-10 Updated PLEASE DO AN ADDENDUM TO THE PROGRESS NOTE WITH ANY DOCUMENTATION UPDATES OR ADDITIONS AND CARRY THROUGH TO DC SUMMARY. THANK YOU. DATE: 05/11 ATTN: DR. Osmin GARNICA Please exercise your independent, professional judgment in responding to the clarification form. Clinical indicators are provided on the bottom of this form for your review. Please check appropriate box(s) to clarify if the following diagnosis has been ruled in or ruled out: SEPSIS [ ] Ruled in diagnosis [ ] Continue to treat [ ] Resolved [ xx ] Ruled out diagnosis [ ] Other diagnosis [ ] Unable to determine For continuity of documentation, please document condition throughout progress notes and discharge summary. Thank You. CLINICAL INDICATORS - SIGNS / SYMPTOMS / LABS ER PRESENTATION 05/10: T: 102.4 (R) CONFUSED H&P DOCUMENTATION 05/10: ASSESSMENT: 1) AMS W/R FRONTAL LOB HEMORRHAGIC CONTUSION; 3) UROSEPSIS PN 05/11: ASSESSMENT & PLAN: 2) UTI NO FURTHER MENTION OF SEPSIS RISK FACTORS: RECENT BRONCHITIS ADVANCED AGE (88) UTI TREATMENTS: IV ANTIBIOTIC (CEFEPIME 05/10 - 05/11, SINCE DISCONTINUED) IVF (NS 05/10) THANK YOU! Alethea (This form is maintained as a part of the permanent medical record) 2015 [employer]. All Rights Reserved Alethea Larios RN, BSN [email or web address] Office: [phone] LILIAN
--- NOTE | 2018-05-11 13:50 | PQF ---
CLINICAL DOCUMENTATION IMPROVEMENT CLARIFICATION FORM: ICD-10 Updated PLEASE DO AN ADDENDUM TO THE PROGRESS NOTE WITH ANY DOCUMENTATION UPDATES OR ADDITIONS AND CARRY THROUGH TO DC SUMMARY. THANK YOU. DATE: 05/11 ATTN: DR. Osmin GARNICA Please exercise your independent, professional judgment in responding to the clarification form. Clinical indicators are provided on the bottom of this form for your review. Please check appropriate box(s): [ xx] Cerebral edema / Vasogenic edema [ xx ] Compression of brain Due to: [ xx ] Intracranial Hemorrhage [ xx ] Traumatic brain injury [ ] Other diagnosis [ ] Unable to determine For continuity of documentation, please document condition throughout progress notes and discharge summary. Thank You. CLINICAL INDICATORS - SIGNS / SYMPTOMS / LABS CT BRAIN 05/10: LARGE HEMORRHAGIC CONTUSION CENTERED IN THE INFEROMEDIAL R FRONTAL LOBE. THERE IS ADJACENT EDEMA INVOLVING THE RIGHT FRONTAL LOBE. THERE IS ANTERIOR R TO L SUBFALCINE HERNIATION OF [address] BRAIN 05/11: 1) APPARENT KNOWN R FRONTAL INTRAPARENCHYMAL HEMATOMA; 2) MODERATE SURROUNDING EDEMA PN 05/11: LABORATORY DATA: HEAD CT FROM THIS MORNING COMPARED TO PRIOR W/ R FRONTAL INTRAPARENCHYMAL HEMATOMA, MODERATE SURROUNDING EDEMA. RISK FACTORS: R FRONTAL INTRACEREBRAL HEMORRHAGE, POST-TRAUMATIC, S/P FALL 05/02 TREATMENTS: SERIAL CT ICU MONITORING NEUROSURGERY CONSULT THANK YOU! Alethea (This form is maintained as a part of the permanent medical record) 2014 [id number]. All Rights Reserved Alethea Larios RN, BSN [email or web address] Office: [phone] [facility]
[2018-05-11 15:17] VITALS: BMI 19.0
[2018-05-12 05:32] LABS: Anion Gap 13 mmol/L (10-20); BUN (Urea Nitrogen) 13 mg/dL (8.4-25.7); Calc. Creatinine Clearance 66 mL/min (70-130); Calcium 9.2 mg/dL (7.8-10.44); Carbon Dioxide 22 mmol/L (23-31); Chloride 100 mmol/L (98-107); Estimated GFR-MDRD Greater than 90; Glucose 92 mg/dL (83-110); Potassium 3.8 mmol/L (3.5-5.1); Sodium 131 mmol/L (136-145)
--- NOTE | 2018-05-12 08:52 | PRG ---
DATE OF SERVICE: 05/12/2018 SUBJECTIVE: He is doing well, has no specific complaints. PHYSICAL EXAMINATION: VITAL SIGNS: Temperature is 98, pulse 81, blood pressure 137/55, O2 sat 100%. HEENT: Unremarkable. NECK: No JVD. CHEST: Clear. CARDIAC: S1 and S2 regular. ABDOMEN: Soft. EXTREMITIES: No edema. LABORATORY DATA: No labs were done today except for chemistry which was normal except for sodium 131 . ASSESSMENT: Intracranial bleed with no real neurologic deficits. PLAN: Can transfer out to the floor at any time. Pulmonary will follow as long as he is in the ICU.
[2018-05-12] MEDS: Carvedilol 3.125 MG TAB PO SCH ×2 (09:17→20:24)
[2018-05-12] MEDS ORDERED: Acetaminophen 325 MG TAB PO PRN (16:04)
--- NOTE | 2018-05-12 20:50 | PRG ---
DATE OF SERVICE: 05/12/2018 This is a 50 minutes subsequent patient evaluation in which greater than 50% of the exam spent on cou nseling and coordinating the patient's care. Remainder of the exam was spent in review of the patien t's medical records and formulation of treatment plan. SUBJECTIVE: Mr. Blanton is now hospital day #2 having sustained a large right frontal intraparenchyma l hemorrhage. He is doing well neurologically is improved. The slurred speech has completely resolved. He follows commands equally in all 4 extremities. Pupils are equal, round, and reactive b ilaterally. He states he is feeling much better. He is sitting up in a chair watching TV. At this time, from neurosurgical standpoint again he does not require any type of neurosurgical intervention. We would like to hold all blood thinners until he is cleared by Neurosurgery. We will arrange for followup appointment in our office in the next 2-4 weeks with a noncontrast head CT. Otherwise, tanisha serrano from our standpoint, he can be moved to the stroke unit and hopefully ready for discharge soon. We appreciate the medical team admitting and following the patient. Neurosurgery will sign off at this time. Please call with any questions or changes in the patient's neurologic status. Lennox Grant PA-C dictating for Yfn Mathews MD.
--- NOTE | 2018-05-12 20:57 | PRG ---
DATE OF SERVICE: 05/12/2018 SUBJECTIVE: The patient is feeling much better. He has improved headache. Denies any confusion. Denies nausea and vomiting. Denies chest pain, shortness of breath or palpitations. States that he is tolerating a regular diet without any difficulties. Has not been out of bed much, but denies any dizziness. PHYSICAL EXAMINATION: VITAL SIGNS: Temperature 99.2, pulse of 98, respirations 10-12, blood pressure 121/75, pulse ox is 98% on room air. GENERAL: He is awake and alert. Speech is clear. Pupils equally round and reactive to light and accommodation. HEENT: Mucosa is moist. NECK: Supple. Head slight tenderness on the right side. HEART: Regular rate and rhythm. LUNGS: Clear. No wheeze, rales or rhonchi. ABDOMEN: Soft. EXTREMITIES: Without edema. NEUROLOGIC: Moves all extremities without difficulties. Sensation is intact bilaterally. LABORATORY DATA: Sodium 131, potassium 3.8, chloride 100, CO2 of 22, BUN and creatinine 13 and 0.69. Serum glucose of 92, calcium of 9.2. There is no repeat CT of the brain today. ASSESSMENT AND PLAN: This is an 88-year-old gentleman status post syncopal episode while at home with head trauma with subsequent right intracerebral hemorrhage. 1. Intracerebral hemorrhage seems to be stable. Continue to monitor per surgery, possible transfer to the floor versus inpatient rehabilitation. 2. Possible urinary tract infection. Urine cultures are negative. We will discontinue antibiotics at this time. 3. Hyponatremia. He is asymptomatic. We will continue to follow and continue fluid restriction. Recheck labs in the morning. DISPOSITION: Okay for transfer to inpatient rehab when okay with Neurosurgery. LILIAN
[2018-05-13 05:28] LABS: Anion Gap 9 mmol/L (10-20); BUN (Urea Nitrogen) 13 mg/dL (8.4-25.7); Calc. Creatinine Clearance 70 mL/min (70-130); Calcium 8.5 mg/dL (7.8-10.44); Carbon Dioxide 26 mmol/L (23-31); Chloride 100 mmol/L (98-107); Estimated GFR-MDRD Greater than 90; Glucose 93 mg/dL (83-110); Potassium 3.6 mmol/L (3.5-5.1); Sodium 131 mmol/L (136-145)
[2018-05-13] MEDS: Carvedilol 3.125 MG TAB PO SCH (09:50)
[2018-05-13 11:42] VITALS: TEMP 97.8
[2018-05-13 12:12] VITALS: BP 131/51
--- NOTE | 2018-05-13 13:21 | DIS ---
DATE OF ADMISSION: 05/10/2018 DATE OF DISCHARGE: 05/13/2018 DISCHARGE DIAGNOSES: 1. Right frontal lobe intracerebral hemorrhage from a fall. 2. Dehydration. 3. Urosepsis. 4. Bronchitis. 5. Dilated ischemic cardiomyopathy. 6. Aortic insufficiency. 7. History of congestive heart failure. 8. Sick sinus syndrome. 9. Status post pacemaker placement. 10. Hypertension. Continue home medications which includes multiple vitamins and Coreg 3.125 b.i.d., and aspirin [address] FOLLOWUP: Follow up with Dr. Guzman in 1 week. BRIEF HISTORY: This is an 88-year-old white male status post fall one week prior in the bathtub. He did well for approximately 1 week and then began developing an altered mental status. He slept thro ughout the day and had all the lights off in the house. He seemed somewhat confused and the daughter called EMS and was brought to the hospital. HOSPITAL COURSE: CT of the head was performed and revealed a large right frontal lobe cerebral hemor rhage from the contusion. He has not had no nausea, vomiting or slurred speech. He was admitted to the ICU. He was observed. Neurosurgery was consulted. His hemorrhage has remained stable and somew hat decreased. He is to be discharged and to receive home health, PT and care. The patient is doing quite well. Ambulating without any neuro symptoms. He has no slurred speech. He is awake, alert, converses and is quite remarkable.
== END 2018-05-13 14:39 | disposition home health service (06) | DRG 82 ==
LOC: SCSER 18:05 → CCU 19:30 → 2SE 05-12 14:43
PROVIDERS: ADMIT Family Medicine; ATTEND Family Medicine
DX: S06.309A Unspecified focal traumatic brain injury with loss of consciousness of unspecified duration, initial encounter (principal); G93.6 Cerebral edema; I42.0 Dilated cardiomyopathy; N39.0 Urinary tract infection, site not specified; E87.1 Hypo-osmolality and hyponatremia; W18.2XXA Fall in (into) shower or empty bathtub, initial encounter; Y92.002 Bathroom of unspecified non-institutional (private) residence as the place of occurrence of the external cause; I49.5 Sick sinus syndrome; E86.0 Dehydration; J40 Bronchitis, not specified as acute or chronic; I25.5 Ischemic cardiomyopathy; I50.9 Heart failure, unspecified; I11.0 Hypertensive heart disease with heart failure; I35.1 Nonrheumatic aortic (valve) insufficiency; Z79.82 Long term (current) use of aspirin; Z95.810 Presence of automatic (implantable) cardiac defibrillator; Z81.1 Family history of alcohol abuse and dependence; Z82.49 Family history of ischemic heart disease and other diseases of the circulatory system
CPT/HCPCS: 36415; 51701; 70450; 71046; 80048; 80053; 81003; 81015; 83605; 85025; 87040; 87086; 87804; 96361; 96365; G8978-GP-CJ; G8979-GP-CI; G8987-GO-CJ; G8988-GO-CI; J0692; J0696; J7050

== ENCOUNTER 2018-06-09 09:05 | Outpatient (CLI) | payer MEDICARE, BC ==
--- NOTE | 2018-06-09 11:14 | CT ---
CT BRAIN PERFORMED WITHOUT CONTRAST ENHANCEMENT: HISTORY: Followup of intracranial hemorrhage. COMPARISON: 05/11/2018 FINDINGS: There is some generalized ventricular and sulcal prominence with decreased attenuation within the per iventricular white matter, all consistent with chronic white matter change. The right frontal, more midline, intracranial hemorrhage shows evidence that it is gradually resolvin g. The high attenuation change has almost completely disappeared from this area. There is some atte nuation within this area, which is similar to the surrounding brain parenchyma and probably represent s the evolution of the thrombus. There is still some edema change surrounding this area. The overal l size of the combination of the edema and what is probably some residual clot is approximately 2.2 x 4.2 cm in size. There is some minimal mass effect still present, associated with this. IMPRESSION: 1. Resolving right frontal intraparenchymal hemorrhage. 2. No significant change in the appearance of the ventricular size. POS: [facility]
== END 2018-06-09 09:06 | disposition home or self-care (01) ==
LOC: TBSIIMAG 09:05
PROVIDERS: ATTEND Surgery
DX: I61.8 Other nontraumatic intracerebral hemorrhage (principal)
CPT/HCPCS: 70450